=== PATIENT | male | born 1965 | race African-American/Black ===

== ENCOUNTER 2024-11-08 06:47 | Inpatient (IN) | payer SELFPAY ==
[~2024-11-08] VITALS: Ht 175.3 cm; Wt 90.7 kg
[2024-11-08 06:51] VITALS: O2SAT 100
[2024-11-08] MEDS: ONDANSETRON HCL 4MG/2ML INJ IV ONE (07:30)
[2024-11-08] MEDS: ACETAMINOPHEN 325MG TABLET PO ONE (07:30)
[2024-11-08 08:08] LABS: HEMATOCRIT. 46.4 % (42.0-52.0); HEMOGLOBIN. 15.5 g/dL (14.0-18.0); MEAN CORPUSCULAR HEMOGLOBIN 30.5 pg (28.0-32.0); MEAN CORPUSCULAR HGB CONC 33.5 g/dL (31.0-37.0); MEAN PLATELET VOLUME 9.3 fl (7.4-10.4); PLATELET 114 x1000/uL (130-400); RED BLOOD CELL COUNT 5.09 mill/uL (4.7-6.1); RED CELL DISTRIBUTION WIDTH 12.8 % (11.6-14.6); WHITE BLOOD COUNT 5.6 x1000/uL (4.5-11.0)
[2024-11-08 08:10] LABS: CHLORIDE 104 mEq/L (98-107); DIFFERENTIAL COMMENT 1; SODIUM 137 mEq/L (136-145)
[2024-11-08 08:11] LABS: CALCIUM 9.4 mg/dL (8.7-10.4); CARBON DIOXIDE 25 mEq/L (21-32)
[2024-11-08 08:16] LABS: CREATININE 1.2 mg/dL (0.6-1.3); GLUCOSE 139 mg/dL (70-105); UREA NITROGEN BLOOD 13 mg/dL (9-23)
[2024-11-08 08:18] LABS: ALANINE AMINOTRANSFERASE 20 IU/L (10-49); ALBUMIN 4.1 g/dL (3.2-4.8); ASPARTATE AMINOTRANSFERASE 17 IU/L (<34); BILIRUBIN DIRECT 0.3 mg/dL (<=3.0); BILIRUBIN TOTAL 0.8 mg/dL (0.1-1.0)
[2024-11-08] MEDS: ONDANSETRON HCL 4MG/2ML INJ IV NR (10:08)
[2024-11-08] MEDS: ACETAMINOPHEN 325MG TABLET PO NR (10:08)
[2024-11-08] MEDS: LACTATED RINGERS 1,000 ML IV SCH (10:36)
[2024-11-08 11:05] VITALS: BP 134/67; PULSE 80; RESP 20; TEMP 36.7
[2024-11-08 12:00] VITALS: BP 134/67; PULSE 80; RESP 20; TEMP 36.7; O2SAT 100
[2024-11-08] MEDS ORDERED: ENOXAPARIN 80MG/0.8ML SYR SUBCUT NR (12:30)
[2024-11-08] MEDS ORDERED: IOHEXOL-300 100 ML BOTTLE ONE (12:54)
[2024-11-08 12:58] LABS: INR 1.1; PROTHROMBIN TIME 12.6 sec (9.6-11.0)
[2024-11-08 16:00] VITALS: BP 133/68; PULSE 78; RESP 18; TEMP 36.5; O2SAT 100
[2024-11-08] MEDS: ENOXAPARIN 100MG/ML SYR SUBCUT SCH (16:22)
[2024-11-08 20:00] VITALS: BP 124/71; PULSE 77; RESP 18; TEMP 37.6; O2SAT 92
[2024-11-09] VITALS: BP 114/64; PULSE 77; RESP 18; TEMP 37.2; O2SAT 92
[2024-11-09 04:00] VITALS: BP 117/71; PULSE 78; RESP 18; TEMP 37.8; O2SAT 100
[2024-11-09] MEDS: ACETAMINOPHEN 325MG TABLET PO PRN (05:10)
[2024-11-09 06:49] LABS: CHLORIDE 101 mEq/L (98-107); POTASSIUM 3.6 mEq/L (3.5-5.1); SODIUM 137 mEq/L (136-145)
[2024-11-09 06:50] LABS: CALCIUM 8.9 mg/dL (8.7-10.4); CARBON DIOXIDE 25 mEq/L (21-32)
[2024-11-09 06:55] LABS: CREATININE 1.1 mg/dL (0.6-1.3); GLUCOSE 103 mg/dL (70-105); UREA NITROGEN BLOOD 13 mg/dL (9-23)
[2024-11-09 08:00] VITALS: BP 118/71; PULSE 70; RESP 18; TEMP 36.6; O2SAT 97
[2024-11-09 10:23] LABS: HEMATOCRIT. 47.1 % (42.0-52.0); HEMOGLOBIN. 15.5 g/dL (14.0-18.0); MEAN CORPUSCULAR HEMOGLOBIN 30.1 pg (28.0-32.0); MEAN CORPUSCULAR VOLUME 91.1 fL (80.0-94.0); MEAN PLATELET VOLUME 10.3 fl (7.4-10.4); PLATELET 108 x1000/uL (130-400); RED BLOOD CELL COUNT 5.17 mill/uL (4.7-6.1); RED CELL DISTRIBUTION WIDTH 12.8 % (11.6-14.6)
[2024-11-09 10:30] LABS: DIFFERENTIAL COMMENT 1
[2024-11-09] MEDS: ONDANSETRON HCL 4MG/2ML INJ IV PRN (11:16)
[2024-11-09 12:00] VITALS: BP 122/71; PULSE 61; RESP 20; TEMP 36.1; O2SAT 100
[2024-11-09 16:00] VITALS: BP 122/70; PULSE 61; RESP 18; TEMP 36.5; O2SAT 97
[2024-11-09 16:51] LABS: PLATELET ESTIMATE SLIGHTLY DECREASED
[2024-11-09 16:55] LABS: PLATELET ESTIMATE DECREASED
[2024-11-09 20:00] VITALS: BP 114/72; PULSE 67; RESP 20; TEMP 36.7; O2SAT 95
[2024-11-10] VITALS: PULSE 66; RESP 20; TEMP 36.6; O2SAT 97
[2024-11-10] MEDS ORDERED: IOHEXOL-350 100 ML BOTTLE ONE (00:24)
[2024-11-10 04:00] VITALS: BP 104/67; PULSE 61; RESP 20; TEMP 36.5; O2SAT 97
[2024-11-10 07:30] VITALS: BP 92/63; PULSE 58; RESP 18; TEMP 36.6; O2SAT 96
[2024-11-10 07:34] LABS: CARBON DIOXIDE 25 mEq/L (21-32); CHLORIDE 104 mEq/L (98-107); POTASSIUM 4.2 mEq/L (3.5-5.1); SODIUM 138 mEq/L (136-145)
[2024-11-10 07:35] LABS: CALCIUM 9.4 mg/dL (8.7-10.4)
[2024-11-10 07:40] LABS: CREATININE 1.3 mg/dL (0.6-1.3); GLUCOSE 101 mg/dL (70-105); UREA NITROGEN BLOOD 11 mg/dL (9-23)
[2024-11-10 07:47] LABS: HEMATOCRIT. 48.5 % (42.0-52.0); HEMOGLOBIN. 16.5 g/dL (14.0-18.0); MEAN CORPUSCULAR HEMOGLOBIN 31.1 pg (28.0-32.0); MEAN CORPUSCULAR HGB CONC 34.1 g/dL (31.0-37.0); MEAN CORPUSCULAR VOLUME 91.3 fL (80.0-94.0); MEAN PLATELET VOLUME 10.1 fl (7.4-10.4); PLATELET 120 x1000/uL (130-400); RED BLOOD CELL COUNT 5.32 mill/uL (4.7-6.1); RED CELL DISTRIBUTION WIDTH 12.8 % (11.6-14.6); WHITE BLOOD COUNT 2.7 x1000/uL (4.5-11.0)
[2024-11-10 08:10] LABS: DIFFERENTIAL COMMENT 1
[2024-11-10 12:00] VITALS: BP 100/65; PULSE 62; RESP 18; TEMP 36.6; O2SAT 100
[2024-11-10 14:54] LABS: PLATELET ESTIMATE SLIGHTLY DECREASED
[2024-11-10 16:00] VITALS: BP 92/57; PULSE 69; RESP 18; TEMP 37.9; O2SAT 100
[2024-11-10 20:00] VITALS: BP 106/69; PULSE 68; RESP 18; TEMP 36.9; O2SAT 97
[2024-11-11] VITALS: BP 104/64; PULSE 59; RESP 20; TEMP 36.7; O2SAT 98
[2024-11-11 04:00] VITALS: BP 104/69; PULSE 61; RESP 18; TEMP 36.7; O2SAT 98
[2024-11-11 12:00] VITALS: BP 100/64; PULSE 60; RESP 20; TEMP 36.5; O2SAT 96
[2024-11-11 16:00] VITALS: BP 101/67; PULSE 68; RESP 18; TEMP 36.7; O2SAT 99
[2024-11-11 20:00] VITALS: BP 99/61; PULSE 59; RESP 18; TEMP 37.6; O2SAT 95
[2024-11-12] VITALS (7 sets, daily range): BP systolic 90–115; BP diastolic 55–75; PULSE 57–69; RESP 18–20; TEMP 36.1–37.1; O2SAT 95–98
[2024-11-12] MEDS: DOCUSATE SODIUM 250MG CAPSULE PO SCH (18:04)
[2024-11-13] VITALS (7 sets, daily range): BP systolic 99–114; BP diastolic 61–72; PULSE 55–68; RESP 16–19; TEMP 36.2–37.2; O2SAT 89–100
[2024-11-13] MEDS: LACTULOSE 20G/30ML UDC PO PRN (07:04)
[2024-11-13 13:31] LABS: DIFFERENTIAL COMMENT 1; HEMATOCRIT. 47.6 % (42.0-52.0); MEAN CORPUSCULAR HEMOGLOBIN 30.4 pg (28.0-32.0); MEAN CORPUSCULAR HGB CONC 33.6 g/dL (31.0-37.0); MEAN CORPUSCULAR VOLUME 90.5 fL (80.0-94.0); MEAN PLATELET VOLUME 9.5 fl (7.4-10.4); PLATELET 119 x1000/uL (130-400); RED BLOOD CELL COUNT 5.26 mill/uL (4.7-6.1); RED CELL DISTRIBUTION WIDTH 12.5 % (11.6-14.6); WHITE BLOOD COUNT 2.1 x1000/uL (4.5-11.0)
[2024-11-13 13:39] LABS: CHLORIDE 107 mEq/L (98-107); POTASSIUM 3.8 mEq/L (3.5-5.1); SODIUM 139 mEq/L (136-145)
[2024-11-13 13:40] LABS: CARBON DIOXIDE 25 mEq/L (21-32)
[2024-11-13 13:41] LABS: CALCIUM 8.7 mg/dL (8.7-10.4)
[2024-11-13 13:45] LABS: GLUCOSE 109 mg/dL (70-105); UREA NITROGEN BLOOD 10 mg/dL (9-23)
[2024-11-13 16:07] LABS: PLATELET ESTIMATE NORMAL
[2024-11-14] VITALS: BP 99/68; PULSE 53; RESP 18; TEMP 36.6; O2SAT 97
[2024-11-14 04:00] VITALS: BP 101/67; PULSE 55; RESP 18; TEMP 37.2; O2SAT 98
[2024-11-14 08:00] VITALS: BP 96/61; PULSE 60; RESP 18; TEMP 37.4; O2SAT 96
[2024-11-14 12:10] VITALS: BP 101/67; PULSE 60; RESP 18; TEMP 36.6; O2SAT 97
== END 2024-11-14 14:10 | disposition left against medical advice (07) | DRG 197 ==
LOC: ER 06:47 → 8WST 08:40 → EDBEDREQ 08:45 → EDBEDREQTM 08:45
PROVIDERS: ADMIT Internal Medicine; ATTEND Internal Medicine
DX: I82.421 Acute embolism and thrombosis of right iliac vein (principal); I82.220 Acute embolism and thrombosis of inferior vena cava; Z86.718 Personal history of other venous thrombosis and embolism; Z86.711 Personal history of pulmonary embolism; Z53.21 Procedure and treatment not carried out due to patient leaving prior to being seen by health care provider; Z79.01 Long term (current) use of anticoagulants
CPT/HCPCS: 36415; 71045; 71275; 74177; 80048; 80076; 82962; 83605; 84145; 84153; 85025; 93306; 93970; 99291; J1650; J2405; Q9967